=== PATIENT | female | born 1985 | race Caucasian/White ===

== ENCOUNTER 2016-11-16 15:11 | Emergency (ER) | payer SELFPAY ==
[2016-11-16 16:20] LABS: Hematocrit 38 % (35-47); Hemoglobin 13.1 g/dl (12.0-16.0); Mean Corpuscular HGB Conc 34 g/dl (31-36); Mean Corpuscular Hemoglobin 29 pg (27-31); Mean Corpuscular Volume 84 fL (80-97); Mean Platelet Volume 7 um3 (7.4-10.4); Red Cell Distribution Width 13 % (10.5-15); White Blood Count 10.9 10^3/ul (3.5-10.8)
[2016-11-16 16:29] LABS: Manual Entry Verification ROB0080; Mono Internal Control QC Line Present
[2016-11-16 16:32] LABS: Albumin 3.8 g/dL (3.2-5.2); BUN/Creatinine Ratio 14.3 (8-20); EGFR African American 127.2 (>60); EGFR Non-African American 98.9 (>60); Globulin 3.6 g/dL (2-4); Potassium 3.7 mmol/L (3.5-5.0); Total Bilirubin 0.4 mg/dL (0.2-1.0); Total Protein 7.4 g/dL (6.4-8.9)
[2016-11-16 17:07] LABS: Urine Bacteria 1+ (Absent); Urine Bilirubin Negative (Negative); Urine Glucose Negative (Negative); Urine Nitrite Negative (Negative)
[2016-11-16] MEDS ORDERED: Clindamycin CAP* 150 MG PO ONE (17:08)
[2016-11-16 17:38] VITALS: BP 152/90
--- NOTE | 2016-11-19 15:43 | ED ---
Jonah, DoctorJessika, scribed for Sandie Roman MD on 11/16/16 at 1632 . Complex/Multi-Sys Presentation - HPI Summary HPI Summary: 31 year old female arrived to [facility] c/o sore throat and neck pain beginning a few weeks ago. She reports that her throat has been hurting for a few weeks, and in the past week she has been unable to move her neck after waking up. She has also been experiencing subjective fevers, bilateral kidney pain, an occasional cough, and feeling "like she was going to pass out" at work today. She denies any N/V/D, syncope, dysuria, or abdominal pain. She reports that her throat sometimes feels better with water; she has been eating and drinking normally. She lives with her son and is an occasional smoker; she has a FHx of DM and HTN. - History Of Current Complaint Chief Complaint: EDThroatPain Time Seen by Provider: 11/16/16 15:27 Hx Obtained From: Patient Onset/Duration: Gradual Onset Timing: Weeks Severity Currently: Moderate Severity Initially: Moderate Associated Signs And Symptoms: Positive: Cough, Other - reports feeling "about to pass out", sore throat, neck pain, kidney pain bilaterally. Negative: Syncope, Nausea, Vomiting, Diarrhea, Abdominal Pain, Dysuria, Decreased Oral Intake - Allergies/Home Medications Allergies/Adverse Reactions: Allergies Allergy/AdvReac Type Severity Reaction Status Date / Time Amoxicillin Allergy Intermediate Rash Verified 11/16/16 15:15 Penicillins Allergy Intermediate Rash Verified 11/16/16 15:15 PMH/Surg Hx/FS Hx/Imm Hx Endocrine/Hematology History: Denies: Hx Diabetes, Hx Thyroid Disease Cardiovascular History: Denies: Hx Hypertension Respiratory History: Denies: Hx Asthma, Hx Chronic Obstructive Pulmonary Disease (COPD) GI History: Denies: Hx Ulcer - Surgical History Surgery Procedure, Year, and Place: 2012 Infectious Disease History: No Infectious Disease History: Denies: Hx Hepatitis, Hx Human Immunodeficiency Virus (HIV), Traveled Outside the [place] in Last 30 Days - Family History Known Family History: Positive: Hypertension - Social History Occupation: Employed Full-time Lives: With Family Alcohol Use: Occasionally Alcohol Amount: USED ETOH LAST EVENING Substance Use Type: Reports: Marijuana Substance Use Comment - Amount & Last Used: USED LAST EVENING Smoking Status (MU): Current Some Day Smoker Amount Used/How Often: 1 per week Review of Systems Negative: Fever Positive: Sore Throat Positive: Cough Negative: Abdominal Pain, Vomiting, Diarrhea, Nausea Negative: hematuria Positive: Myalgia - neck pain, bilateral kidney pain Positive: Weakness. Negative: Syncope All Other Systems Reviewed And Are Negative: Yes Physical Exam Triage Information Reviewed: Yes Vital Signs On Initial Exam: Initial Vitals Temp Pulse Resp BP Pulse Ox 97 F 83 16 159/95 100 11/16/16 15:15 11/16/16 15:15 11/16/16 15:15 11/16/16 15:15 11/16/16 15:15 Vital Signs Reviewed: Yes Appearance: Positive: Well-Appearing, No Pain Distress Skin: Positive: Warm, Skin Color Reflects Adequate Perfusion, Dry Eyes: Positive: EOMI, YEIMI ENT: Positive: Pharynx normal, TMs normal, Tonsillar swelling. Negative: Tonsillar exudate - no tonsillar exudate or tonsillar erythema Neck: Positive: Supple. Negative: Nontender - neck tenderness Respiratory/Lung Sounds: Positive: Clear to Auscultation, Breath Sounds Present. Negative: Rales, Rhonchi, Wheezes Cardiovascular: Positive: RRR. Negative: Murmur, Rub Abdomen Description: Positive: Nontender, Soft, CVA Tenderness (R) - bilateral mild flank pain, CVA Tenderness (L) - bilateral mild flank pain. Negative: No Organomegaly, Distended, Guarding, Hepatomegaly Musculoskeletal: Positive: Normal, Strength/ROM Intact. Negative: Edema Left, Edema Right Neurological: Positive: Sensory/Motor Intact, Alert, Oriented to Person Place, Time, CN Intact II-III Psychiatric: Positive: Normal, Affect/Mood Appropriate Diagnostics - Vital Signs Vital Signs Temp Pulse Resp BP Pulse Ox 11/16/16 15:15 97 F 83 16 159/95 100 - Laboratory Lab Results: Lab Results 11/16/16 Range/Units 16:10 WBC 10.9 H (3.5-10.8) 10^3/ul RBC 4.60 (4.0-5.4) 10^6/ul Hgb 13.1 (12.0-16.0) g/dl Hct 38 (35-47) % MCV 84 (80-97) fL MCH 29 (27-31) pg MCHC 34 (31-36) g/dl RDW 13 (10.5-15) % Plt Count 257 (150-450) 10^3/ul MPV 7 L (7.4-10.4) um3 Neut % (Auto) 72.4 (38-83) % Lymph % (Auto) 15.7 L (25-47) % Logan % (Auto) 7.9 (1-9) % Eos % (Auto) 3.1 (0-6) % Baso % (Auto) 0.9 (0-2) % Absolute Neuts (auto) 7.9 H (1.5-7.7) 10^3/ul Absolute Lymphs (auto) 1.7 (1.0-4.8) 10^3/ul Absolute Monos (auto) 0.9 H (0-0.8) 10^3/ul Absolute Eos (auto) 0.3 (0-0.6) 10^3/ul Absolute Basos (auto) 0.1 (0-0.2) 10^3/ul Absolute Nucleated RBC 0.01 10^3/ul Nucleated RBC % 0.1 Monoscreen Pending 15:30 - Group A Rapid Strep: Positive H 16:10 - Monoscreen: Negative Result Diagrams: 11/16/16 16:10 11/16/16 16:10 Lab Statement: Any lab studies that have been ordered have been reviewed, and results considered in the medical decision making process. Complex Multi-Symp Course/Dx - Diagnoses Provider Diagnoses: Strep throat Discharge - Discharge Plan Condition: Stable Disposition: HOME Prescriptions: Clindamycin Cap(NF) [Cleocin 300 mg Cap(NF)] 300 mg PO TID #30 cap Patient Education Materials: Strep Throat (ED) Referrals: [facility] [Outside] The documentation as recorded by the Doctor shah Tahera accurately reflects the service I personally performed and the decisions made by , Sandie Roman MD.
== END 2016-11-16 17:37 | disposition home or self-care (01) ==
LOC: ED 15:11
DX: J02.0 Streptococcal pharyngitis (principal); R05 Cough; J02.9 Acute pharyngitis, unspecified; M54.2 Cervicalgia
CPT/HCPCS: 36415; 80053; 81003; 81015; 85025; 86308; 86703; 87086; 87651; 99282; A9270-GY

== ENCOUNTER 2017-03-18 16:10 | Emergency (ER) | payer BC ==
[2017-03-18 16:18] VITALS: BP 152/73
--- NOTE | 2017-03-18 22:18 | UC ---
Tila Mckenzie Edward, scribed for Jarad Moore MD on 03/18/17 at 1655 . Dizzy HPI HPI Summary: 32 y/o female presents to [facility] c/o sudden onset dizziness starting three to four days ago and nausea starting this morning. She states room spinning earlier (now resolved), lightheadedness and feeling slightly disoriented when she stands up. The dizziness is aggravated when she sits up or stands up. She also c/o lower lip numbness starting yesterday morning, still present. It was swollen last morning but it has gone down since. Associated sx: R arm pain last night but no weakness, numbness or tingling. The pain starts in the R shoulder and radiated down to the forearm. She also c/o chronic back pain, chronic HENRY, intermittent blurred vision. Denies ABD pain. PMHx slipped disc in back. FHx strokes (aunt - late 30's). Former smoker. - History Of Current Complaint Chief Complaint: UCDizziness Stated Complaint: DIZZY,NAUSEA,LOWER LIP NUMBNESS Time Seen by Provider: 03/18/17 16:47 Hx Obtained From: Patient Hx Last Menstrual Period: depo Onset/Duration: Sudden Onset, Lasting Days - Three to 4 days ago, Still Present Character: Room Spinning, Lightheaded, Dizzy Aggravating Factor(s): Headache, Supine To Erect Associated Signs And Symptoms: Positive: Nausea, Visual Changes - Intermittent blurred vissions - Allergies/Home Medications Allergies/Adverse Reactions: Allergies Allergy/AdvReac Type Severity Reaction Status Date / Time Amoxicillin Allergy Intermediate Rash Verified 03/18/17 16:18 Penicillins Allergy Intermediate Rash Verified 03/18/17 16:18 Clindamycin Allergy Hives Verified 03/18/17 16:18 PMH/Surg Hx/FS Hx/Imm Hx - Additional Past Medical History Additional PMH: Positive: slipped disc in back Previously Healthy: No - Surgical History Surgical History: Yes Surgery Procedure, Year, and Place: 2011 - Family History Known Family History: Positive: Hypertension, Other - Stroke - Social History Occupation: Employed Full-time Alcohol Use: Rare Alcohol Amount: USED ETOH LAST EVENING Substance Use Type: None, Marijuana Substance Use Comment - Amount & Last Used: USED LAST EVENING Smoking Status (MU): Former Smoker Type: Cigarettes Amount Used/How Often: 1 per week Review of Systems Constitutional: Negative Skin: Negative Eyes: Blurred Vision ENT: Other - Lip swelling and numbness (swelling has gone down) Respiratory: Negative Cardiovascular: Negative Gastrointestinal: Nausea Genitourinary: Negative Motor: Negative Neurovascular: Negative Musculoskeletal: Arthralgia - Lower back pain (chronic), Myalgia - R arm pain from shoulder to forearm Neurological: Headache, Other - Dizziness. No numbness/tingling in arm Psychological: Negative All Other Systems Reviewed And Are Negative: Yes Physical Exam Triage Information Reviewed: Yes Vital Signs: Initial Vital Signs Temp 99.2 F 03/18/17 16:14 Pulse 74 03/18/17 16:14 Resp 20 03/18/17 16:14 BP 152/73 03/18/17 16:14 Pulse Ox 100 03/18/17 16:14 Vital Signs Reviewed: Yes - Additional Comments The patient is obese in no acute distress and in no acute pain. The skin is warm and dry and skin color reflects adequate perfusion. HEENT: The head is normocephalic and atraumatic. The pupils are equal and reactive. The conjunctivae are clear and without drainage. Nares are patent and without drainage. Mouth reveals moist mucous membranes and the throat is without erythema and exudate. The external ears are intact. The ear canals are patent and without drainage. The tympanic membranes are intact. Neck is supple with full range of motion and non-tender. There are no carotid bruits. There is no neck vein distension. Respiratory: Chest is non-tender. Lungs are clear to auscultation and breath sounds are symmetrical and equal. Cardiovascular: Hear is regular rate and rhythm. There is no murmur or rub auscultated. There is no peripheral edema and pulses are symmetrical and equal. Abdomen: The abdomen is soft and non-tender. There are normal bowel sounds heard in all four quadrants and there is no organomegaly palpated. Musculoskeletal: There is no back pain noted. Extremities are non-tender with full range of motion. There is good capillary refill. There is no peripheral edema or calf tenderness elicited. Neurological: Patient is alert and oriented to person, place and time. The patient has symmetrical motor strength in all four extremities. Cranial nerves are grossly intact. Deep tendon reflexes are symmetrical and equal in all four extremities. No pronator drift, heel to mccrary and finger to nose intact. Psychiatric: The patient has an appropriate affect and does not exhibit any anxiety or depression. Diagnostics - EKG Cardiac Rate: NL Cardiac Rhythm: Sinus: Normal - 16:21 - 70 bpm. Normal axis Dizzy Course/Dx - Course Course Of Treatment: 32 y/o female presents to [facility] c/o sudden onset dizziness starting three to four days ago and nausea starting this morning. She states room spinning earlier (now resolved), lightheadedness and feeling slightly disoriented when she stands up. The dizziness is aggravated when she sits up or stands up. She also c/o lower lip numbness starting yesterday morning, still present. It was swollen last morning but it has gone down since. Associated sx: R arm pain last night but no weakness, numbness or tingling. The pain starts in the R shoulder and radiated down to the forearm. She also c/o chronic back pain , chronic HENRY, intermittent blurred vision. Denies ABD pain. PMHx slipped disc in back. FHx strokes (aunt - late 30's). Former smoker. EKG @ 16:21 shows NSR @ 70 bpm with normal axis. Pt will be d/c home and given Meclizine. Pt will be instructed to f/u with PCP and to go to the ED if her symptoms persist. - Differential Dx/Diagnosis Differential Diagnosis/HQI/PQRI: Hypovolemia, Labyrinthitis, Other - migraines Provider Diagnoses: Labrynthitis Discharge - Discharge Plan Condition: Stable Disposition: HOME Prescriptions: Meclizine TAB* [Antivert 12.5 TAB*] 25 mg PO QID #30 tab Patient Education Materials: Dizziness (ED) Referrals: [facility] [Outside] - 3 Days (Please f/u in 2-3 days) Additional Instructions: Please f/u with PCP. If symptoms persist, please go to the ED. The documentation as recorded by the Tila shah Edward accurately reflects the service I personally performed and the decisions made by , Jarad Moore MD.
== END 2017-03-18 17:11 | disposition home or self-care (01) ==
LOC: UCEAST 16:10
DX: H83.09 Labyrinthitis, unspecified ear (principal); R51 Headache; M54.9 Dorsalgia, unspecified; G89.29 Other chronic pain; Z88.3 Allergy status to other anti-infective agents; Z88.0 Allergy status to penicillin; F12.90 Cannabis use, unspecified, uncomplicated; F17.210 Nicotine dependence, cigarettes, uncomplicated; E66.9 Obesity, unspecified
CPT/HCPCS: 93005; 99212; G0463

== ENCOUNTER 2017-08-21 11:39 | Emergency (ER) | payer BC ==
--- NOTE | 2017-08-21 12:23 | UC ---
Abdominal Pain Female HPI - HPI Summary HPI Summary: 3 DAYS OF RIGHT FLANK PAIN AND NAUSEA. 2 EPISODES OF LOOSE STOOLS YESTERDAY. NO FEVER. NOT WORSE WITH MVMT. FEELS SHE CAN'T GET COMFORTABLE. WORSE AFTER EATING. DENIES URINARY SX. CURRENTLY IS HAVING SOME VAGINAL SPOTTING. PT HAS IRREGULAR MENSES AND STATES THIS IS NOT UNUSUAL FOR HER. - History of Current Complaint Chief Complaint: UCBackPain Stated Complaint: back and side pain Time Seen by Provider: 08/21/17 12:02 Hx Obtained From: Patient Hx Last Menstrual Period: 08/19/17 Onset/Duration: Gradual Onset, Lasting Days, Still Present Timing: Constant Severity Initially: Moderate Severity Currently: Moderate Pain Intensity: 7 Pain Scale Used: 0-10 Numeric Location: Other - RIGHT FLANK Radiates: No Character: Cramping, Sharp Aggravating Factor(s): Food Alleviating Factor(s): Nothing Associated Signs and Symptoms: Positive: Back Pain, Nausea, Diarrhea. Negative : Fever, Cough, Constipation, Blood in Stool, Urinary Symptoms, Vaginal Bleeding Allergies/Adverse Reactions: Allergies Allergy/AdvReac Type Severity Reaction Status Date / Time Amoxicillin Allergy Intermediate Rash Verified 03/18/17 16:18 Penicillins Allergy Intermediate Rash Verified 03/18/17 16:18 Clindamycin Allergy Hives Verified 03/18/17 16:18 Home Medications: Home Medications Ibuprofen [Ibuprofen 200] 800 mg PO Q8HR PRN 08/21/17 [History Confirmed ] PMH/Surg Hx/FS Hx/Imm Hx Previously Healthy: Yes - Surgical History Surgical History: Yes Surgery Procedure, Year, and Place: 2011 - Family History Known Family History: Positive: Hypertension, Other - Stroke - Social History Alcohol Use: None Alcohol Amount: USED ETOH LAST EVENING Substance Use Type: None Substance Use Comment - Amount & Last Used: USED LAST EVENING Smoking Status (MU): Former Smoker Type: Cigarettes Amount Used/How Often: 1 per week Review of Systems Constitutional: Negative ENT: Negative Respiratory: Negative Cardiovascular: Negative Gastrointestinal: Diarrhea, Nausea Genitourinary: Negative Musculoskeletal: Other: - RIGHT FLANK PAIN All Other Systems Reviewed And Are Negative: Yes Physical Exam Triage Information Reviewed: Yes Appearance: Well-Appearing, No Pain Distress, Well-Nourished Vital Signs: Initial Vital Signs Temp 99.3 F 08/21/17 11:45 Pulse 74 08/21/17 11:45 Resp 18 08/21/17 11:45 BP 143/81 08/21/17 11:45 Pulse Ox 99 08/21/17 11:45 Vital Signs Reviewed: Yes Eyes: Positive: Conjunctiva Clear ENT: Positive: Hearing grossly normal Neck: Positive: Supple Respiratory Exam: Normal Cardiovascular Exam: Normal Abdomen Description: Positive: Soft, CVA Tenderness (R) - EQUIVOCAL, Other: - TTP RUQ. POSITIVE FERNÁNDEZ'S. NO REBOUND OR RIGIDITY. Negative: CVA Tenderness (L ), Distended, Guarding Musculoskeletal: Positive: No Edema Neurological: Positive: Alert Psychological: Positive: Age Appropriate Behavior Skin: Negative: rashes Diagnostics - Laboratory Diagnostic Studies Completed/Ordered: URINE DIP SP. GR. 1.015, 2+BLOOD (PT HAS SOME VAGINAL SPOTTING) - Radiology CT ABD/PELVIS Xray Interpretation: Positive (See Comments) - No definite obstructive uropathy is noted. No other masses or fluid collections are noted. Cholelithiasis without biliary duct dilatation. Radiology Interpretation Completed By: Radiologist Abd Pain Female Course/Dx - Differential Dx/Diagnosis Provider Diagnoses: BILIARY COLIC/GALLSTONES Discharge - Discharge Plan Condition: Stable Disposition: HOME Prescriptions: Ondansetron ODT TAB* [Zofran Odt TAB*] 4 mg PO Q6H PRN #20 tab.odt PRN Reason: Nausea/Vomiting Patient Education Materials: Biliary Colic (ED), Gallstones (ED), Low Fat Diet (ED) Forms: *Work Release Referrals: Nya Tarango MD [Medical Doctor] - 3 Days Dale Reyes MD [Medical Doctor] - If Needed Additional Instructions: CT SCAN TODAY SHOWED GALLSTONES. NO KIDNEY STONES. WATCH YOUR DIET AND FOLLOW- UP WITH SURGERY TO DISCUSS FURTHER MANAGEMENT AND POSSIBLE INDICATION FOR GALLBLADDER REMOVAL. GO TO THE ER WITHOUT FAIL IF YOU DEVELOP WORSENING PAIN, FEVER, NAUSEA OR ANY OTHER CONCERNING SYMPTOMS. YOU DID HAVE BLOOD IN YOUR URINE TODAY. THIS MAY BE DUE TO VAGINAL SPOTTING. PLEASE HAVE THIS RECHECKED IN ABOUT 2 WEEKS WHEN YOU ARE NOT SPOTTING TO ENSURE IT HAS CLEARED. IF NOT YOU WILL NEED TO BE SEEN BY UROLOGY. CALL THE NUMBER BELOW FOR ASSISTANCE IN ESTABLISHING WITH A PCP An additional resource available to assist in finding the appropriate physician for your health care needs is the [facility] ([facility]). You may contact them by calling [phone].
[2017-08-21] MEDS ORDERED: Ondansetron ODT TAB* 4 MG PO ONE (12:49)
--- NOTE | 2017-08-21 13:44 | RAD ---
Indication: Hematuria. CT of the abdomen and pelvis was performed without IV contrast administration. Coronal and sagittal reconstructed images were obtained. Lung bases demonstrate no pleural fluid, nodules or masses. Heart is of normal size without pericardial effusion. Liver is normal in size. No focal lesions or intrahepatic duct dilatation is noted. The gallbladder demonstrates multiple calcified gallstones. No pericholecystic fluid or wall thickening is noted. Pancreas demonstrates no mass effect or ductal dilatation. The spleen is normal in size. No adrenal masses are noted. The kidneys demonstrate no hydronephrosis. No retroperitoneal lymphadenopathy is noted. CT of the pelvis demonstrates no retroperitoneal or pelvic lymphadenopathy. The uterus and ovaries are unremarkable. The urinary bladder is unremarkable. IMPRESSION: No definite obstructive uropathy is noted. No other masses or fluid collections are noted. Cholelithiasis without biliary duct dilatation.
[2017-08-21 13:57] VITALS: BP 130/80
== END 2017-08-21 14:27 | disposition home or self-care (01) ==
LOC: UCEAST 11:39
DX: K80.20 Calculus of gallbladder without cholecystitis without obstruction (principal); K80.50 Calculus of bile duct without cholangitis or cholecystitis without obstruction; R19.7 Diarrhea, unspecified; N89.8 Other specified noninflammatory disorders of vagina; Z88.0 Allergy status to penicillin; Z88.1 Allergy status to other antibiotic agents; Z87.891 Personal history of nicotine dependence
CPT/HCPCS: 74176; 81003; 99212; A9270-GY; G0463

== ENCOUNTER 2017-08-28 15:41 | Emergency (ER) | payer BC ==
[2017-08-28 16:15] VITALS: BP 154/93
--- NOTE | 2017-08-28 17:02 | UC ---
Respiratory Complaint HPI - HPI Summary HPI Summary: c.o sore throat and fever for several days. LMD: spotting since 08-26-17, history of depoprovera which was stopped last year but continues with irregular bleeding, states she is not sexually active. Rapid strept was positive at today - History of Current Complaint Chief Complaint: UCRespiratory Stated Complaint: SORE THROAT Time Seen by Provider: 08/28/17 16:51 Hx Last Menstrual Period: 08/19/17 - Allergies/Home Medications Allergies/Adverse Reactions: Allergies Allergy/AdvReac Type Severity Reaction Status Date / Time Amoxicillin Allergy Intermediate Rash Verified 03/18/17 16:18 Penicillins Allergy Intermediate Rash Verified 03/18/17 16:18 Clindamycin Allergy Hives Verified 03/18/17 16:18 PMH/Surg Hx/FS Hx/Imm Hx Previously Healthy: Yes - Surgical History Surgical History: Yes Surgery Procedure, Year, and Place: 2011 - Family History Known Family History: Positive: Hypertension, Other - Stroke - Social History Alcohol Use: None Alcohol Amount: USED ETOH LAST EVENING Substance Use Type: None Substance Use Comment - Amount & Last Used: USED LAST EVENING Smoking Status (MU): Former Smoker Type: Cigarettes Amount Used/How Often: 1 per week Review of Systems Constitutional: Fever, Chills Skin: Negative Eyes: Negative ENT: Sore Throat Respiratory: Negative Cardiovascular: Negative All Other Systems Reviewed And Are Negative: Yes Physical Exam Triage Information Reviewed: Yes Appearance: Ill-Appearing Vital Signs: Initial Vital Signs Temp 99.0 F 08/28/17 16:11 Pulse 82 08/28/17 16:11 Resp 18 08/28/17 16:11 BP 154/93 08/28/17 16:11 Pulse Ox 100 08/28/17 16:11 Vital Signs Reviewed: Yes Eye Exam: Normal ENT: Positive: Pharyngeal erythema, TMs normal, Tonsillar swelling Neck exam: Normal Respiratory Exam: Normal Cardiovascular Exam: Normal Diagnostic Evaluation - Laboratory O2 Sat by Pulse Oximetry: 100 Respiratory Course/Dx - Course Course Of Treatment: start antibiotics as prescribed, po fluids and tylenol as needed - Differential Dx/Diagnosis Provider Diagnoses: streptococcal pharyngitis Discharge - Discharge Plan Condition: Stable Disposition: HOME Patient Education Materials: Pharyngitis (ED) Referrals: No Primary Care Phys,NOPCP [Primary Care Provider] -
== END 2017-08-28 17:23 | disposition home or self-care (01) ==
LOC: UCEAST 15:41
DX: J02.0 Streptococcal pharyngitis (principal); N85.8 Other specified noninflammatory disorders of uterus; Z88.1 Allergy status to other antibiotic agents; Z88.0 Allergy status to penicillin
CPT/HCPCS: 87651; 99212; G0463

== ENCOUNTER 2017-12-09 03:46 | Emergency (ER) | payer BC ==
[2017-12-09] MEDS ORDERED: Tetan/Diph/Pertus SYR(Tdap)* 0.5 ML SYR(BOOSTRIX) use SYR IM ONE (04:17)
[2017-12-09] MEDS ORDERED: Sulfamethox/Trimethoprim DS 800/160* TAB PO ONE (04:18)
[2017-12-09] MEDS ORDERED: oxyCODONE/Acetamin 5/325 MG* TAB PO ONE (04:18)
[2017-12-09] MEDS ORDERED: metroNIDAZOLE TAB* 250 MG PO ONE (04:18)
[2017-12-09 04:55] VITALS: BP 159/85
--- NOTE | 2017-12-09 19:32 | ED ---
Frank Mckenzie Thomas, scribed for Nori Hong MD on 12/09/17 at 0435 . Complex/Multi-Sys Presentation - HPI Summary HPI Summary: The patient is a 32 year old female complaining of a small puncture wound to her left hand from a cat bite that occurred five hours ago. She also has cat scratches to her left forearm. The patient does not recall her last tetanus vaccination. The cats vaccinations are up to date. The patient reports allergies to penicillin and clindamycin. - History Of Current Complaint Chief Complaint: EDAnimalBite Time Seen by Provider: 12/09/17 04:10 Hx Obtained From: Patient Onset/Duration: Lasting Hours, Still Present Timing: Constant Severity Initially: Mild Location: Pain At: - left hand, left forearm Aggravating Factor(s): None Alleviating Factor(s): None Associated Signs And Symptoms: Negative: Other - fever - Allergies/Home Medications Allergies/Adverse Reactions: Allergies Allergy/AdvReac Type Severity Reaction Status Date / Time amoxicillin Allergy Rash Verified 12/09/17 03:51 clindamycin Allergy Hives Verified 12/09/17 03:51 Penicillins Allergy Rash Verified 12/09/17 03:51 Home Medications: Home Medications Multivit-Min/Iron Fum/Folic AC [Multi Vitamin and Mineral] 1 tab PO DAILY [History Confirmed 12/09/17] PMH/Surg Hx/FS Hx/Imm Hx Endocrine/Hematology History: Denies: Hx Diabetes, Hx Thyroid Disease Cardiovascular History: Denies: Hx Hypertension Respiratory History: Denies: Hx Asthma, Hx Chronic Obstructive Pulmonary Disease (COPD) GI History: Denies: Hx Ulcer - Surgical History Surgery Procedure, Year, and Place: 2011 - Immunization History Date of Tetanus Vaccine: unk Date of Influenza Vaccine: fall 2016 Infectious Disease History: No Infectious Disease History: Denies: Hx Hepatitis, Hx Human Immunodeficiency Virus (HIV), Traveled Outside the [place] in Last 30 Days - Family History Known Family History: Positive: Hypertension, Other - Stroke - Social History Alcohol Use: Rare Alcohol Amount: USED ETOH LAST EVENING Substance Use Type: Reports: None Substance Use Comment - Amount & Last Used: USED LAST EVENING Smoking Status (MU): Former Smoker Type: Cigarettes Amount Used/How Often: 1 per week Review of Systems Negative: Fever Positive: Other - Cat bite, cat scratch All Other Systems Reviewed And Are Negative: Yes Physical Exam - Summary Physical Exam Summary: VITAL SIGNS: Reviewed. GENERAL:~Patient is a well-developed and nourished female who is lying comfortable in the stretcher. Patient is not in any acute respiratory distress. HEAD AND FACE: No signs of trauma. No ecchymosis, hematomas or skull depressions. No sinus tenderness. EYES: PERRLA, EOMI x 2, No injected conjunctiva, no nystagmus. EARS: Hearing grossly intact. Ear canals and tympanic membranes are within normal limits. MOUTH: Oropharynx within normal limits. NECK: Supple, trachea is midline, no adenopathy, no JVD, no carotid bruit, no c- spine tenderness, neck with full ROM. CHEST: Symmetric, no tenderness at palpation LUNGS: Clear to auscultation bilaterally. No wheezing or crackles. CVS: Regular rate and rhythm, S1 and S2 present, no murmurs or gallops appreciated. ABDOMEN: Soft, non-tender. No signs of distention. No rebound no guarding, and no masses palpated. Bowel sounds are normal. EXTREMITIES: FROM in all major joints, no edema, no cyanosis or clubbing. NEURO: Alert and oriented x 3. No acute neurological deficits. Speech is normal and follows commands. SKIN: Dry and warm. She has a few scratches on both her hands. There is not any swelling, erythema, or tenderness. Triage Information Reviewed: Yes Vital Signs On Initial Exam: Initial Vitals Temp Pulse Resp BP Pulse Ox 99 F 80 20 146/103 100 12/09/17 03:49 12/09/17 03:49 12/09/17 03:49 12/09/17 03:49 12/09/17 03:49 Vital Signs Reviewed: Yes Diagnostics - Vital Signs Vital Signs Temp Pulse Resp BP Pulse Ox 12/09/17 04:29 16 12/09/17 03:49 99 F 80 20 146/103 100 - Laboratory Lab Statement: Any lab studies that have been ordered have been reviewed, and results considered in the medical decision making process. Complex Multi-Symp Course/Dx Assessment/Plan: The patient is a 32 year old female complaining of a small puncture wound to her left hand from a cat bite that occurred five hours ago. The patient does not recall her last tetanus vaccination. The cats vaccinations are up to date. The patient reports allergies to penicillin and clindamycin. In the ED course, the patient was given Flagyl, Bactrim, Percocet, and Tetanus vaccine. The patient was discharged home with diagnosis of cat bite. She was instructed to return to the ED if the hands become more swollen or painful. - Diagnoses Provider Diagnoses: Cat bite Discharge - Sign-Out/Discharge Documenting (check all that apply): Discharge/Admit/Transfer - Discharge Plan Condition: Stable Disposition: HOME Prescriptions: metroNIDAZOLE [Flagyl] 500 mg PO Q6H #40 tablet Oxycodone HCl/Acetaminophen [Percocet 5-325 mg Tablet] 1 each PO Q6HR PRN #14 tablet MDD 4 PRN Reason: Pain Sulfamethox/Trimethoprim DS* [Bactrim DS 800/160 TAB*] 1 tab PO BID #20 tab Patient Education Materials: Animal Bite (ED) Referrals: Apple Whaley NP [Primary Care Provider] - 3 Days Additional Instructions: Follow up with your primary care provider in three days. Return to the emergency department if your hands become more swollen or more painful. The documentation as recorded by the Frank shah Thomas accurately reflects the service I personally performed and the decisions made by Gely yi Abdul, MD.
== END 2017-12-09 04:54 | disposition home or self-care (01) ==
LOC: ED 03:46
DX: S61.432A Puncture wound without foreign body of left hand, initial encounter (principal); W55.01XA Bitten by cat, initial encounter; S50.812A Abrasion of left forearm, initial encounter; W55.03XA Scratched by cat, initial encounter; Y93.9 Activity, unspecified; Y92.9 Unspecified place or not applicable; Z23 Encounter for immunization; Z88.1 Allergy status to other antibiotic agents; Z88.0 Allergy status to penicillin; Z87.891 Personal history of nicotine dependence
CPT/HCPCS: 90471; 90715; 99282; A9270-GY

== ENCOUNTER 2017-12-19 10:43 | Emergency (ER) | payer BC ==
[2017-12-19 11:36] LABS: ABS Basophils 0 10^3/ul (0-0.2); ABS Eosinophils 0.1 10^3/ul (0-0.6); ABS Lymphocytes 0.9 10^3/ul (1.0-4.8); ABS Monocytes 0.5 10^3/ul (0-0.8); ABS Neutrophils 2.6 10^3/ul (1.5-7.7); ABS Nucleated RBC 0 10^3/ul; Eosinophil % 3.5 % (0-6); Hematocrit 39 % (35-47); Hemoglobin 13.5 g/dl (12.0-16.0); Lymphocyte % 22.1 % (25-47); Mean Corpuscular HGB Conc 35 g/dl (31-36); Mean Corpuscular Hemoglobin 31 pg (27-31); Mean Corpuscular Volume 88 fL (80-97); Mean Platelet Volume 8.7 um3 (7.4-10.4); Nucleated Red Blood Cells % 0.2; Platelet Count 272 10^3/ul (150-450); Red Blood Count 4.42 10^6/ul (4.0-5.4); Red Cell Distribution Width 13 % (10.5-15); White Blood Count 4.1 10^3/ul (3.5-10.8)
[2017-12-19 11:53] LABS: EGFR Non-African American 92.1 (>60)
[2017-12-19 12:23] LABS: Urine Appearance Clear; Urine Blood 1+ (Negative); Urine Color Yellow; Urine Ketones Negative (Negative); Urine Protein Negative (Negative); Urine Specific Gravity 1.011 (1.010-1.030); Urine Urobilinogen Negative (Negative)
[2017-12-19] MEDS ORDERED: Metoclopramide IV* 5 MG/ML 2 ML VIAL IV ONE (12:33)
[2017-12-19] MEDS ORDERED: Morphine VIAL* 4 MG/ML VIAL (1 ml vial) IV ONE (12:33)
[2017-12-19] MEDS ORDERED: NS 0.9% 1000 ML* 1,000 ML IV ONE (12:33)
--- NOTE | 2017-12-19 14:11 | RAD ---
Indication: Right upper quadrant pain. Real-time sonography of the right upper quadrant was performed. The liver and susceptibility limits of normal size measuring 18 cm in length. No focal lesions or intrahepatic ductal dilatation is noted. The gallbladder demonstrates multiple echogenic foci consistent with gallstones. No pericholecystic fluid or wall thickening is identified. The common duct measures 4 mm. The pancreas demonstrates no mass or pancreatic duct dilatation. IMPRESSION: Cholelithiasis without evidence of biliary ductal dilatation.
--- NOTE | 2017-12-19 14:20 | ED ---
Abdominal Pain/Female - HPI Summary HPI Summary: Pt here w/ RUQ pain. Was dx'd a few months ago w/ cholelithiasis on CT - no obstruction. Has been controlling w/ diet until earlier this week when she admits her sx returned with eating fatty foods. These include diarrhea, nausea w /o vomiting, RUQ pain and dark urine. SHe tried to revert back to a healthy diet but reports morning she developed 9/10 pain which brought her back in here. - History of Current Complaint Chief Complaint: EDAbdPain Stated Complaint: ABD PAIN,NAUSEA Time Seen by Provider: 12/19/17 10:54 Hx Obtained From: Patient, Family/[employer] Technician - mom Hx Last Menstrual Period: 08/19/17 Pain Intensity: 9 Allergies/Adverse Reactions: Allergies Allergy/AdvReac Type Severity Reaction Status Date / Time amoxicillin Allergy Rash Verified 12/20/17 11:54 clindamycin Allergy Hives Verified 12/20/17 11:54 Penicillins Allergy Rash Verified 12/20/17 11:54 Home Medications: Home Medications Acetaminophen [Tylenol Extra Strength] 500 mg PO Q12H PRN 12/19/17 [History Confirmed 12/19/17] Cider Vinegar [Apple Cider Vinegar] 300 mg PO DAILY 12/19/17 [History Confirmed 12/19/17] PMH/Surg Hx/FS Hx/Imm Hx Previously Healthy: Yes Endocrine/Hematology History: Denies: Hx Diabetes, Hx Thyroid Disease Cardiovascular History: Denies: Hx Hypertension Respiratory History: Denies: Hx Asthma, Hx Chronic Obstructive Pulmonary Disease (COPD) GI History: Reports: Hx Gall Bladder Disease Denies: Hx Ulcer - Surgical History Surgery Procedure, Year, and Place: 2011 - Immunization History Date of Tetanus Vaccine: unk Date of Influenza Vaccine: fall 2016 Infectious Disease History: No Infectious Disease History: Denies: Hx Hepatitis, Hx Human Immunodeficiency Virus (HIV), Traveled Outside the [place] in Last 30 Days - Family History Known Family History: Positive: Hypertension, Other - Stroke - Social History Occupation: Employed Part-time - [employer] Lives: With Family - son Alcohol Use: Rare Hx Substance Use: No Substance Use Type: Reports: None Hx Tobacco Use: No - not currently Smoking Status (MU): Former Smoker Type: Cigarettes Amount Used/How Often: 1 per week Review of Systems Constitutional: Negative Negative: Fever, Chills, Fatigue Eyes: Negative ENT: Negative Cardiovascular: Negative Negative: Chest Pain Respiratory: Negative Negative: Shortness Of Breath, Cough Positive: Abdominal Pain, Diarrhea, Nausea. Negative: Vomiting Positive: see HPI Musculoskeletal: Negative Skin: Negative Neurological: Negative Psychological: Normal All Other Systems Reviewed And Are Negative: Yes Physical Exam Triage Information Reviewed: Yes Vital Signs On Initial Exam: Initial Vitals Temp Pulse Resp BP Pulse Ox 97.8 F 58 16 181/96 99 12/19/17 10:49 12/19/17 10:49 12/19/17 10:49 12/19/17 10:49 12/19/17 10:49 Vital Signs Reviewed: Yes Appearance: Positive: Well-Appearing, Pain Distress - moderate, Obese Skin: Positive: Warm, Skin Color Reflects Adequate Perfusion, Dry Head/Face: Positive: Normal Head/Face Inspection Eyes: Positive: Normal, EOMI, Conjunctiva Clear - anicteric sclera ENT: Positive: Normal ENT inspection, Hearing grossly normal, Pharynx normal - mucosa moist Neck: Positive: Supple, Nontender Respiratory/Lung Sounds: Positive: Clear to Auscultation, Breath Sounds Present Cardiovascular: Positive: Normal, RRR, S1, S2 Abdomen Description: Positive: Soft, Other: - + Chaudhary's - no rebounding. Negative: CVA Tenderness (R), CVA Tenderness (L), Distended, Guarding Bowel Sounds: Positive: Present Pelvic Exam: Positive: Other - deferred Musculoskeletal: Positive: Normal, Strength/ROM Intact Neurological: Positive: Normal, Sensory/Motor Intact, Alert, Oriented to Person Place, Time, CN Intact II-III Psychiatric: Positive: Anxious Diagnostics - Vital Signs Vital Signs Temp Pulse Resp BP Pulse Ox 12/19/17 12:50 16 12/19/17 12:02 58 118/75 99 12/19/17 12:00 53 100 12/19/17 11:32 114/72 12/19/17 11:04 56 124/72 97 12/19/17 11:02 54 97 12/19/17 10:49 97.8 F 58 16 181/96 99 - Laboratory Lab Results: Lab Results 12/19/17 12/19/17 12/19/17 Range/Units 11:23 11:23 11:23 WBC 4.1 (3.5-10.8) 10^3/ul RBC 4.42 (4.0-5.4) 10^6/ul Hgb 13.5 (12.0-16.0) g/dl Hct 39 (35-47) % MCV 88 (80-97) fL MCH 31 (27-31) pg MCHC 35 (31-36) g/dl RDW 13 (10.5-15) % Plt Count 272 (150-450) 10^3/ul MPV 8.7 (7.4-10.4) um3 Neut % (Auto) 62.9 (38-83) % Lymph % (Auto) 22.1 L (25-47) % Dane % (Auto) 11.1 H (0-7) % Eos % (Auto) 3.5 (0-6) % Baso % (Auto) 0.4 (0-2) % Absolute Neuts (auto) 2.6 (1.5-7.7) 10^3/ul Absolute Lymphs (auto) 0.9 L (1.0-4.8) 10^3/ul Absolute Monos (auto) 0.5 (0-0.8) 10^3/ul Absolute Eos (auto) 0.1 (0-0.6) 10^3/ul Absolute Basos (auto) 0 (0-0.2) 10^3/ul Absolute Nucleated RBC 0 10^3/ul Nucleated RBC % 0.2 Sodium 134 L (139-145) mmol/L Potassium TNP Chloride 106 (101-111) mmol/L Carbon Dioxide 22 (22-32) mmol/L Anion Gap 6 (2-11) mmol/L BUN 6 (6-24) mg/dL Creatinine 0.74 (0.51-0.95) mg/dL Est GFR ( Amer) 118.5 (>60) Est GFR (Non-Af Amer) 92.1 (>60) BUN/Creatinine Ratio 8.1 (8-20) Glucose 91 (70-100) mg/dL Lactic Acid 0.8 (0.5-2.0) mmol/L Calcium 9.2 (8.6-10.3) mg/dL Magnesium TNP Total Bilirubin 0.40 (0.2-1.0) mg/dL AST TNP ALT 30 (7-52) U/L Alkaline Phosphatase 87 (34-104) U/L C-Reactive Protein 7.51 H (< 5.00) mg/L Total Protein 7.6 (6.4-8.9) g/dL Albumin 4.1 (3.2-5.2) g/dL Globulin 3.5 (2-4) g/dL Albumin/Globulin Ratio 1.2 (1-3) Amylase 29 (29-103) U/L Lipase 15 (11.0-82.0) U/L Beta HCG, Quant < 0.60 mIU/mL Urine Color Urine Appearance Urine pH (5-9) Ur Specific Ronan (1.010-1.030) Urine Protein (Negative) Urine Ketones (Negative) Urine Blood (Negative) Urine Nitrate (Negative) Urine Bilirubin (Negative) Urine Urobilinogen (Negative) Ur Leukocyte Esterase (Negative) Urine WBC (Auto) (Absent) Urine RBC (Auto) (Absent) Ur Squamous Epith Cells (Absent) Urine Bacteria (Absent) Urine Glucose (Negative) 12/19/17 12/19/17 Range/Units 12:00 12:30 WBC (3.5-10.8) 10^3/ul RBC (4.0-5.4) 10^6/ul Hgb (12.0-16.0) g/dl Hct (35-47) % MCV (80-97) fL MCH (27-31) pg MCHC (31-36) g/dl RDW (10.5-15) % Plt Count (150-450) 10^3/ul MPV (7.4-10.4) um3 Neut % (Auto) (38-83) % Lymph % (Auto) (25-47) % Dane % (Auto) (0-7) % Eos % (Auto) (0-6) % Baso % (Auto) (0-2) % Absolute Neuts (auto) (1.5-7.7) 10^3/ul Absolute Lymphs (auto) (1.0-4.8) 10^3/ul Absolute Monos (auto) (0-0.8) 10^3/ul Absolute Eos (auto) (0-0.6) 10^3/ul Absolute Basos (auto) (0-0.2) 10^3/ul Absolute Nucleated RBC 10^3/ul Nucleated RBC % Sodium (139-145) mmol/L Potassium 4.5 Chloride (101-111) mmol/L Carbon Dioxide (22-32) mmol/L Anion Gap (2-11) mmol/L BUN (6-24) mg/dL Creatinine (0.51-0.95) mg/dL Est GFR ( Amer) (>60) Est GFR (Non-Af Amer) (>60) BUN/Creatinine Ratio (8-20) Glucose (70-100) mg/dL Lactic Acid (0.5-2.0) mmol/L Calcium (8.6-10.3) mg/dL Magnesium 1.7 L Total Bilirubin (0.2-1.0) mg/dL AST 23 ALT (7-52) U/L Alkaline Phosphatase (34-104) U/L C-Reactive Protein (< 5.00) mg/L Total Protein (6.4-8.9) g/dL Albumin (3.2-5.2) g/dL Globulin (2-4) g/dL Albumin/Globulin Ratio (1-3) Amylase (29-103) U/L Lipase (11.0-82.0) U/L Beta HCG, Quant mIU/mL Urine Color Yellow Urine Appearance Clear Urine pH 7.0 (5-9) Ur Specific Ronan 1.011 (1.010-1.030) Urine Protein Negative (Negative) Urine Ketones Negative (Negative) Urine Blood 1+ A (Negative) Urine Nitrate Negative (Negative) Urine Bilirubin Negative (Negative) Urine Urobilinogen Negative (Negative) Ur Leukocyte Esterase Trace A (Negative) Urine WBC (Auto) Trace(0-5/hpf) (Absent) Urine RBC (Auto) 1+(3-5/hpf) A (Absent) Ur Squamous Epith Cells Present A (Absent) Urine Bacteria 1+ A (Absent) Urine Glucose Negative (Negative) Result Diagrams: 12/19/17 11:23 12/19/17 12:30 Lab Statement: Any lab studies that have been ordered have been reviewed, and results considered in the medical decision making process. Re-Evaluation - Re-Evaluation First Eval Change: Improved - pain and nausea resolved w/ meds Abdominal Pain Fem Course/Dx - Course Course Of Treatment: cholelithiasis w/o evidence of biliary duct dilitation. Labs are w/o abnormal LFT's. Given clinical picture, suspect pt may be experiencing biliary colic w. stone present but w/o acute findings, she does not require further intervention at this time. Advised on diet and close f/u w/ surgery to discuss pathology and options. Danger s/sx reviewed for when to return - pt agrees w/ plan. - Diagnoses Provider Diagnoses: Biliary colic symptom Discharge - Sign-Out/Discharge Documenting (check all that apply): Discharge/Admit/Transfer - Discharge Plan Condition: Stable Disposition: HOME Prescriptions: Ondansetron ODT TAB* [Zofran 4 MG Odt TAB*] 8 mg PO Q8H PRN #3 tab.odt PRN Reason: Nausea Patient Education Materials: Biliary Colic (ED), Gallstones (ED) Forms: *Work Release Referrals: Nya Tarango MD [Medical Doctor] - Additional Instructions: You appear to be having intermittent gallbladder pain due to stones in your gallbladder resulting in increased movement with certain foods that you're eating. It is important that you implement a clear liquid diet including water , Gatorade, juice, leonard marychuy, etc. the next 48 hours to allow this area to calm down. If your appetite is improved after these days of liquids, you may advance to diet as tolerated but still avoid fatty foods prevent recurrence of pain. Contact the surgeon Thursday to schedule an appointment to discuss this condition in further detail. Contact information included here. *If in the meantime you develop return of nausea with vomiting, intractable diarrhea, worsening of pain, fever, chills, return to the emergency department. - Billing Disposition and Condition Condition: STABLE Disposition: HOME
[2017-12-19] MEDS ORDERED: Magnesium Oxide TAB* 400 MG PO ONE (14:36)
[2017-12-19 14:51] VITALS: BP 124/70
== END 2017-12-19 14:58 | disposition home or self-care (01) ==
LOC: ED 10:43
DX: K80.20 Calculus of gallbladder without cholecystitis without obstruction (principal); Z87.891 Personal history of nicotine dependence; Z88.0 Allergy status to penicillin; Z88.3 Allergy status to other anti-infective agents
CPT/HCPCS: 36415; 76705; 80053; 81003; 81015; 82150; 83605; 83690; 83735; 84702; 85025; 86140; 87086; 96361; 96374; 96375; 99283; J2270; J2765

== ENCOUNTER 2017-12-20 11:31 | Emergency (ER) | payer BC ==
[2017-12-20 11:53] VITALS: BP 134/76
--- NOTE | 2017-12-20 12:20 | UC ---
Back Pain HPI - HPI Summary HPI Summary: Patient presents with complaints of 2 day onset lower back pain, she states she was putting together a chair at which time she felt a twinge in the lower back, then the next day the pain became for severe, and constant across her lower back. She states her back pain is worse when she lays down, sit down or slouches in a chair and it improves if she puts her feet up. She denies any other injury or trauma, incontinence of bowel or bladder, or saddle anesthesia. She denies any numbness, tingling r weakness of the lower extremities. - History of Current Complaint Chief Complaint: UCBackPain Stated Complaint: LOWER BACK PAIN Time Seen by Provider: 12/20/17 11:47 Hx Obtained From: Patient Hx Last Menstrual Period: 08/19/17 Onset/Duration: Sudden Onset, Lasting Days Timing: Constant Severity Initially: Moderate Severity Currently: Moderate Pain Intensity: 6 Character: Sharp, Aching Aggravating Factor(s): Movement, Bending, Walking Alleviating Factor(s): Rest Associated Signs And Symptoms: Positive: Negative - Risk Factors AAA Risk Factors: Negative TAD Risk Factors: Negative Cauda Equina Risk Factors: Negative Epidural Abscess Risk Factors: Negative - Allergies/Home Medications Allergies/Adverse Reactions: Allergies Allergy/AdvReac Type Severity Reaction Status Date / Time amoxicillin Allergy Rash Verified 12/20/17 11:54 clindamycin Allergy Hives Verified 12/20/17 11:54 Penicillins Allergy Rash Verified 12/20/17 11:54 PMH/Surg Hx/FS Hx/Imm Hx Previously Healthy: Yes - Surgical History Surgical History: Yes Surgery Procedure, Year, and Place: 2011 - Family History Known Family History: Positive: Hypertension, Other - Stroke - Social History Occupation: Employed Full-time Lives: Alone Alcohol Use: Rare Substance Use Type: None Smoking Status (MU): Former Smoker Type: Cigarettes Amount Used/How Often: 1 per week Review of Systems Constitutional: Negative Skin: Negative Eyes: Negative ENT: Negative Respiratory: Negative Cardiovascular: Negative Gastrointestinal: Negative Genitourinary: Negative Motor: Negative Neurovascular: Negative Musculoskeletal: Decreased ROM, Myalgia Neurological: Negative Psychological: Negative Is Patient Immunocompromised?: No All Other Systems Reviewed And Are Negative: Yes Physical Exam Triage Information Reviewed: Yes Appearance: Pain Distress Vital Signs: Initial Vital Signs Temp 99.5 F 12/20/17 11:48 Pulse 86 12/20/17 11:48 Resp 20 12/20/17 11:48 BP 134/76 12/20/17 11:48 Pulse Ox 97 12/20/17 11:48 Vital Signs Reviewed: Yes Eye Exam: Normal ENT Exam: Normal Neck exam: Normal Respiratory Exam: Normal Cardiovascular Exam: Normal Musculoskeletal Exam: Other - Back inspection; vertebra are in good aligment with no step-offs or deformties, no areas of eccymosis, erythema or edema. Nontendener mid-line, of the vertebra or paraspinal processes. palpable tenderness of the lower lateral lumbar musculature. Lower extremitiey strength testing equal 4/5. Sensory exam without deficits. Gait, heel-toe. Skin Exam: Normal Back Pain Course/Dx - Course Course Of Treatment: Patient presents with acute lumbar sprain, secondary to assessbling a chair, the pain is reporductible and no evidence of caude equina syndrome. She is at this timg going to be treated conservatively with muscle relaxers, pain medication and pain medications. I gave her lower back exercises to begin as soon as possible. I told her that if her symtpoms have not imrpoved in 3-5 days she should follow up with hr PCP for consideration of MRI. I took the patient out of work for 2 days so she can rest and hopefully recoover. She verbalized understanding of and in agreement with the discharge plan. - Differential Dx/Diagnosis Differential Diagnosis/HQI/PQRI: Strain, Sprain Provider Diagnoses: acute lumbar sprain Discharge - Sign-Out/Discharge Documenting (check all that apply): Discharge/Admit/Transfer - Discharge Plan Condition: Stable Disposition: HOME Prescriptions: Cyclobenzaprine TAB* [Flexeril 10 MG TAB*] 10 mg PO TID PRN #15 tab MDD 3 PRN Reason: back pain HYDROcodone/ACETAMIN 5-325 MG* [[place] 5-325 TAB*] 1 tab PO Q4H PRN #14 tab MDD 6 PRN Reason: back pain methylPREDNISolone [Medrol Dosepak 4 MG*] 0 mg PO .SEE JANUSZ INSTRUCTION #1 tab Patient Education Materials: Lower Back Exercises (ED), Aspirin Combination ( By mouth), Back Pain (ED) Forms: *Work Release Referrals: Apple Whaley NP [Primary Care Provider] - - Billing Disposition and Condition Condition: STABLE Disposition: HOME
== END 2017-12-20 12:10 | disposition home or self-care (01) ==
LOC: UCEAST 11:31
DX: S33.5XXA Sprain of ligaments of lumbar spine, initial encounter (principal); X58.XXXA Exposure to other specified factors, initial encounter; Y93.9 Activity, unspecified; Y92.9 Unspecified place or not applicable; Z88.1 Allergy status to other antibiotic agents; Z88.0 Allergy status to penicillin; Z87.891 Personal history of nicotine dependence
CPT/HCPCS: 99211; G0463

== ENCOUNTER 2019-03-14 16:05 | Emergency (ER) | payer BC ==
[2019-03-14 17:05] VITALS: BP 154/82
--- NOTE | 2019-03-14 18:07 | UC ---
Dental HPI - HPI Summary HPI Summary: She's had a right-sided upper toothache for about 10 days and it is gotten significantly worse in the last 2 days. She denies fever or chills. - History of Current Complaint Chief Complaint: UCDentalProblem Stated Complaint: TOOTHACHE Time Seen by Provider: 03/14/19 17:53 Hx Obtained From: Patient Hx Last Menstrual Period: one week ago Onset/Duration: Gradual Onset Pain Intensity: 6 Aggravating Factor(s): Heat, Cold - Allergies/Home Medications Allergies/Adverse Reactions: Allergies Allergy/AdvReac Type Severity Reaction Status Date / Time amoxicillin Allergy Rash Verified 03/14/19 17:05 clindamycin Allergy Hives Verified 03/14/19 17:05 Penicillins Allergy Rash Verified 03/14/19 17:05 Home Medications: Home Medications Ibuprofen TAB* [Motrin TAB* 800 MG] 1 dose PO ONCE 03/14/19 [History Confirmed 03/14/19] PMH/Surg Hx/FS Hx/Imm Hx Previously Healthy: Yes - Surgical History Surgical History: Yes Surgery Procedure, Year, and Place: 2011 - Family History Known Family History: Positive: Hypertension, Other - Stroke - Social History Alcohol Use: Rare Substance Use Type: Prescribed Smoking Status (MU): Former Smoker Type: Cigarettes Amount Used/How Often: 1 per week Review of Systems All Other Systems Reviewed And Are Negative: Yes ENT: Positive: Dental Pain Physical Exam - Summary Physical Exam Summary: She is nontoxic in appearance with stable vital signs. She is not in any obvious pain distress. Triage Information Reviewed: Yes Appearance: Well-Appearing, No Pain Distress Vital Signs: Initial Vital Signs Temp 97.9 F 03/14/19 17:02 Pulse 68 03/14/19 17:02 Resp 18 03/14/19 17:02 BP 154/82 03/14/19 17:02 Pulse Ox 100 03/14/19 17:02 Vital Signs Reviewed: Yes Eye Exam: Normal ENT Exam: Normal Dental: Positive: Percussion Tenderness @. Negative: Abscess @, Cellulitis @ Neck exam: Normal Neck: Positive: Nontender, No Lymphadenopathy Respiratory Exam: Normal Dental Complaint Course/Dx - Course Course Of Treatment: I recommended she follow up with a dentist. I will treat her with Bactrim (as she is allergic to penicillins and clindamycin) and tramadol. - Differential Dx/Diagnosis Provider Diagnosis: Toothache Discharge - Sign-Out/Discharge Documenting (check all that apply): Patient Departure All imaging exams completed and their final reports reviewed: No Studies - Discharge Plan Condition: Stable Disposition: HOME Patient Education Materials: Toothache (ED) Referrals: Apple Whaley NP [Primary Care Provider] - Additional Instructions: He will need to follow-up with a dentist. Follow-up urgently if you are not improved in a couple of days. - Billing Disposition and Condition Condition: STABLE Disposition: Home
== END 2019-03-14 18:30 | disposition home or self-care (01) ==
LOC: UCEAST 16:05
DX: K08.89 Other specified disorders of teeth and supporting structures (principal); Z87.891 Personal history of nicotine dependence; Z88.0 Allergy status to penicillin
CPT/HCPCS: 99212; G0463

== ENCOUNTER 2020-08-14 17:08 | Observation (INO) ==
[2020-08-14 18:38] LABS: ABS Eosinophils 0.4 10^3/ul (0-0.6); ABS Lymphocytes 1.6 10^3/ul (1.0-4.8); ABS Monocytes 0.7 10^3/ul (0-0.8); ABS Neutrophils 7.8 10^3/ul (1.5-7.7); Eosinophil % 3.5 %; Hematocrit 37 % (35-47); Hemoglobin 13.1 g/dL (12.0-16.0); Lymphocyte % 15.5 %; Mean Corpuscular HGB Conc 36 g/dL (31-36); Mean Corpuscular Hemoglobin 31 pg (27-31); Mean Corpuscular Volume 87 fL (80-97); Mean Platelet Volume 7.2 fL (7.4-10.4); Platelet Count 304 10^3/uL (150-450); Red Blood Count 4.25 10^6 /uL (3.70-4.87); Red Cell Distribution Width 14 % (10-15); White Blood Count 10.6 10^3/uL (3.5-10.8)
[2020-08-14 18:58] LABS: ALT 9 U/L (7-52); AST 12 U/L (13-39); Albumin 3.9 g/dL (3.2-5.2); Albumin/Globulin Ratio 1.2 (1-3); Alkaline Phosphatase 76 U/L (34-104); Anion Gap 8 mmol/L (2-11); BUN/Creatinine Ratio 12.2 (8-20); Blood Urea Nitrogen 9 mg/dL (6-24); C Reactive Protein 28.14 mg/L (<8.01); CO2 Carbon Dioxide 23 mmol/L (22-32); Calcium 8.8 mg/dL (8.6-10.3); Chloride 105 mmol/L (101-111); EGFR African American 109.4 (>60); EGFR Non-African American 90.4 (>60); Globulin 3.3 g/dL (2-4); Glucose 92 mg/dL (70-100); Lipase 16 U/L (11.0-82.0); Potassium 3.8 mmol/L (3.5-5.0); Sodium 136 mmol/L (135-145); Total Protein 7.2 g/dL (6.4-8.9)
[2020-08-14 19:01] LABS: HCG Pregnancy < 0.60 mIU/mL
[2020-08-14 19:23] LABS: Amylase 40 U/L (29-103)
[2020-08-14] MEDS ORDERED: NS 0.9% 1000 ml BAG 1,000 ML IV ONE (20:12)
[2020-08-14] MEDS ORDERED: Lactated Ringers 1000 ml BAG 1,000 ML IV SCH (20:24)
[2020-08-14] MEDS ORDERED: Ondansetron 4 mg VIAL 2 MG/ML 2 ml VIAL IV PRN (21:47)
[2020-08-14] MEDS: ceFOXitin 2 GM PREMIX 50 ML IVPB SCH (22:44)
[2020-08-14] MEDS: HYDROmorphone 0.5 MG/0.5 ML SYRINGE IV PRN (22:44)
[2020-08-14 23:21] LABS: Urine Appearance Cloudy; Urine Bilirubin Negative (Negative); Urine Blood 1+ (Negative); Urine Color Yellow; Urine Glucose Negative (Negative); Urine Ketones Negative (Negative); Urine Nitrite Negative (Negative); Urine Protein Negative (Negative); Urine Specific Gravity 1.014 (1.010-1.030); Urine Urobilinogen Negative (Negative)
[2020-08-14 23:55] LABS: Urine Bacteria Absent (Absent); Urine Red Blood Cell 1+(3-5/hpf) (Absent); Urine Squamous Epithelial Cell Present (Absent); Urine White Blood Cell Trace(0-5/hpf) (Absent)
[2020-08-15] MEDS: ceFOXitin 2 GM PREMIX 50 ML IVPB SCH (06:05)
[2020-08-15] MEDS: HYDROmorphone 0.5 MG/0.5 ML SYRINGE IV PRN (08:18)
[2020-08-15] MEDS ORDERED: Naloxone 0.4 mg VIAL 0.4 mg/ml 1 ml VIAL IV PRN ×2 (09:27→12:28)
[2020-08-15] MEDS ORDERED: Ondansetron 4 mg VIAL 2 MG/ML 2 ml VIAL IV PRN (09:27)
[2020-08-15] MEDS ORDERED: ceFOXitin 2 GM IVPREMIX 2 GM/50 ML BAG ONE (09:32)
[2020-08-15] MEDS ORDERED: Propofol 10 MG/ML 20 ML BTL ONE (09:59)
[2020-08-15] MEDS ORDERED: Rocuronium 50 mg VIAL 10 mg/ml 5 ml VIAL (50 mg) ONE ×2 (09:59→10:56)
[2020-08-15] MEDS ORDERED: Ondansetron 4 mg VIAL 2 MG/ML 2 ml VIAL ONE ×2 (09:59→11:42)
[2020-08-15] MEDS ORDERED: fentaNYL 100 mcg/2 ml 50 MCG/ML VIAL ONE ×4 (09:59→12:33)
[2020-08-15] MEDS ORDERED: EPHEDrine (Pressors) 50 MG/ML VIAL ONE (10:19)
[2020-08-15] MEDS: fentaNYL 100 mcg/2 ml 50 MCG/ML VIAL IV PRN ×4 (11:47→12:25)
[2020-08-15] MEDS ORDERED: oxyCODONE/Acetamin 5/325 mg TAB PO PRN (12:28)
[2020-08-15] MEDS ORDERED: HYDROmorphone 1 MG/1 ML SYRINGE IV PRN (12:28)
[2020-08-15] MEDS ORDERED: HYDROmorphone 1 MG/1 ML SYRINGE ONE (12:33)
[2020-08-15] MEDS ORDERED: oxyCODONE/Acetamin 5/325 mg TAB ONE (13:37)
[2020-08-15 13:47] VITALS: BP 154/77
== END 2020-08-15 13:49 | disposition home or self-care (01) ==
LOC: SSU 17:08 → ED 17:08 → SSU 21:32
PROVIDERS: ADMIT Surgery; ATTEND Surgery